=== PATIENT | female | born 1970 | race Caucasian/White ===

== ENCOUNTER → 2016-07-17 | Outpatient (CLI) | payer OTHER ==
[2016-07-17 19:21] LABS: MEAN CORPUSCULAR HEMOGLOBIN 30.5 pg (27.0-33.0); MEAN CORPUSCULAR HGB CONC 33.8 g/dl (32.0-36.5); MEAN CORPUSCULAR VOLUME 90.1 fl (80.0-96.0); RED CELL DISTRIBUTION WIDTH 12.3 % (11.5-14.5); WHITE BLOOD COUNT 6.9 K/mm3 (4.0-10.0)
[2016-07-17 19:41] LABS: LUTEINIZING HORMONE 26.1 mIU/mL; PROGESTERONE 1.4 NG/ML
[2016-07-17 19:42] LABS: ESTRADIOL 117.5 PG/ML; FOLLICLE STIMULATING HORMONE 18.6 mIU/mL
[2016-07-17 19:43] LABS: ALBUMIN 3.7 GM/DL (3.2-5.2); ALBUMIN/GLOBULIN RATIO 1.06 (1.00-1.93); ALKALINE PHOSPHATASE 64 U/L (45-117); ALT/SGPT 19 U/L (12-78); ANION GAP 9 MEQ/L (8-16); AST/SGOT 14 U/L (15-37); BILIRUBIN,DIRECT 0.1 MG/DL (0.0-0.2); BILIRUBIN,TOTAL 0.4 MG/DL (0.2-1.0); BLOOD UREA NITROGEN 9 MG/DL (7-18); CALCIUM LEVEL 8.4 MG/DL (8.5-10.1); CARBON DIOXIDE LEVEL 29 MEQ/L (21-32); CHLORIDE LEVEL 101 MEQ/L (98-107); CREATININE FOR GFR 0.79 MG/DL (0.55-1.02); GLOMERULAR FILTRATION RATE > 60.0 (>58); GLUCOSE, FASTING 107 MG/DL (70-105); SODIUM LEVEL 139 MEQ/L (136-145); TOTAL PROTEIN 7.2 GM/DL (6.4-8.2)
[2016-07-20 14:15] LABS: ESTRIOL SERUM <0.1 ng/mL (.); ESTRONE SERUM 137 pg/mL (.); SEX HORMONE BINDING GLOBULIN 83.3 nmol/L (24.6-122.0)
== END ==
LOC: M WUC 14:04
PROVIDERS: ATTEND Dermatology
DX: Z79.899 Other long term (current) drug therapy (principal); N94.819 Vulvodynia, unspecified

== ENCOUNTER → 2016-08-08 | Outpatient (CLI) | payer OTHER ==
[2016-08-08 14:42] LABS: LUTEINIZING HORMONE 17.7 mIU/mL
== END ==
LOC: M WUC 10:37
PROVIDERS: ATTEND Obstetrics & Gynecology
DX: N91.5 Oligomenorrhea, unspecified (principal)

== ENCOUNTER → 2016-08-28 | Outpatient (REF) | payer BC ==
[2016-08-28 15:00] LABS: BASO % 0.4 % (0.0-1.0); EOS # 0.1 K/mm3 (0.0-0.50); LYMPH # 1.2 K/mm3 (1.5-4.5); LYMPH % 22.3 % (24.0-44.0); MEAN CORPUSCULAR HEMOGLOBIN 30.2 pg (27.0-33.0); MEAN CORPUSCULAR HGB CONC 33.5 g/dl (32.0-36.5); MEAN CORPUSCULAR VOLUME 90.4 fl (80.0-96.0); MONO # 0.4 K/mm3 (0.0-0.8); MONO % 6.8 % (0.0-5.0); NEUTROPHILS # 3.7 K/mm3 (1.8-7.7); NEUTROPHILS % 66.6 % (36.0-66.0); RED CELL DISTRIBUTION WIDTH 12.5 % (11.5-14.5); WHITE BLOOD COUNT 5.5 K/mm3 (4.0-10.0)
[2016-08-28 15:45] LABS: ALBUMIN 3.5 GM/DL (3.2-5.2); ALBUMIN/GLOBULIN RATIO 1.09 (1.00-1.93); ALKALINE PHOSPHATASE 47 U/L (45-117); ALT/SGPT 15 U/L (12-78); ANION GAP 7 MEQ/L (8-16); AST/SGOT 11 U/L (15-37); BILIRUBIN,TOTAL 0.5 MG/DL (0.2-1.0); BLOOD UREA NITROGEN 11 MG/DL (7-18); CALCIUM LEVEL 8.5 MG/DL (8.5-10.1); CARBON DIOXIDE LEVEL 28 MEQ/L (21-32); CHLORIDE LEVEL 106 MEQ/L (98-107); CREATININE FOR GFR 0.76 MG/DL (0.55-1.02); GLOMERULAR FILTRATION RATE > 60.0 (>58); GLUCOSE, FASTING 76 MG/DL (70-105); POTASSIUM SERUM 4.5 MEQ/L (3.5-5.1); SODIUM LEVEL 141 MEQ/L (136-145); TOTAL PROTEIN 6.7 GM/DL (6.4-8.2)
[2016-08-28 21:59] LABS: CHOLESTEROL LEVEL 164 MG/DL (<200); TRIGLYCERIDES LEVEL 85 MG/DL (<150)
== END ==
LOC: M LABWUC 14:01
PROVIDERS: ATTEND Family Medicine
DX: Z13.220 Encounter for screening for lipoid disorders (principal); Z13.29 Encounter for screening for other suspected endocrine disorder

== ENCOUNTER → 2018-05-14 | Outpatient (CLI) | payer OTHER ==
[~2018-05-14] MED LIST: E-Z-GAS II EFFERVESCENT PACKET (SODIUM BICARB./CITRIC ACID/SIMETHICONE) As Ordered ONE; E-Z-HD 98% w/w 340GM SUSP BTL As Ordered ONE; E-Z-PAQUE 96% w/w SUSP 176GM BTL As Ordered ONE; PARO1TAB33; PROBCAP4 PO; PYRI100T2; YUVA10TA3
--- NOTE | 2018-05-15 08:12 | REP ---
UPPER GI AIR CONTRAST AND SMALL BOWEL FOLLOW THROUGH The procedure was performed under the direct supervision of Dr. Mcghee. The images were reviewed with Dr. Mcghee The infantryman film shows no organomegaly or pathological masses. The intestinal gas pattern is non-specific. Liquid barium and gas producing crystals were given in the erect position as well as liquid barium in the prone oblique position in order to perform a double contrast upper GI examination. Additionally liquid barium was given at the end of the examination in order to perform a small bowel follow through. The oral and pharyngeal stages of deglutition are unremarkable. Esophageal transport is prompt and efficient and there is no esophagitis, stricture, mucosal ring or hiatal hernia. There is mild gastroesophageal reflux demonstrated to below the level of the nancy. The stomach davidson are normally outlined . The rugal folds are smooth and regular. There is no gastritis neoplasm or ulcer disease. The duodenal davidson are normally outlined . The mucosal folds are smooth and regular. There is no duodenitis pancreatitis peptic ulcer disease or neoplasm. The visualized portion of the proximal small bowel appears normal in course and caliber. The barium column was followed through the small bowel to the level of the terminal ileum. Small bowel transit time right rapid as there is contrast seen in the colon at the end of the upper GI examination. During fluoroscopy gentle palpation shows all loops are freely movable and pliable. There are no fixed or angulated loops. The small bowel mucosal pattern is normal in course and caliber. There is no transition to suggest a partial small-bowel obstruction. Spot filming of the terminal ileum shows it to be unremarkable. Impression: There is mild gastroesophageal reflux demonstrated to below the level of the nancy. Small bowel transit time is quite rapid as there is contrast seen in the colon at the end of the upper GI examination. Otherwise, unremarkable double contrast upper GI and small bowel follow through examination. 2.6 minutes of fluoro time was utilized for this procedure. Reviewed by DON Woodard 05/14/2018 04:10 P Electronically Signed by Carlitos Mcghee MD 05/15/2018 08:04 A
== END ==
LOC: M RAD 07:53
PROVIDERS: ATTEND Surgery
DX: R10.9 Unspecified abdominal pain (principal)

== ENCOUNTER 2018-05-22 10:53 | Day surgery (SDC) | payer BC, OTHER ==
[~2018-05-22] VITALS: Ht 162.6 cm; Wt 65.8 kg
[~2018-05-22 10:53] MED LIST changes: -E-Z-GAS II EFFERVESCENT PACKET (SODIUM BICARB./CITRIC ACID/SIMETHICONE) As Ordered ONE; -E-Z-HD 98% w/w 340GM SUSP BTL As Ordered ONE; -E-Z-PAQUE 96% w/w SUSP 176GM BTL As Ordered ONE
[2018-05-22] MEDS ORDERED: PROPOFOL 500 MG/50 ML VIAL As Ordered ONE (11:50)
[2018-05-22] MEDS ORDERED: NS 1,000 ML IV ONE (12:00)
[2018-05-22] MEDS ORDERED: fentaNYL 100 MCG/2 ML INJECTION (J3010) As Ordered ONE (12:16)
--- NOTE | 2018-05-22 12:53 | ROOR ---
Patient Name: Amy Bowles Procedure Date: 05/22/2018 12:37 PM Date of : 1970 Age: 47 Room: [facility] Gender: Female Note Status: Finalized Procedure: Upper GI endoscopy Indications: Suspected esophageal reflux Providers: Be Armstrong Jr, MD Referring MD: Ed Dent Do Requesting Provider: Medicines: Propofol per Anesthesia Complications: No immediate complications. Procedure: Pre-Anesthesia Assessment: - Prior to the procedure, a History and Physical was performed, and patient medications and allergies were reviewed. The patient is competent. The risks and benefits of the procedure and the sedation options and risks were discussed with the patient. All questions were answered and informed consent was obtained. Patient identification and proposed procedure were verified by the physician and the nurse in the pre-procedure area and in the procedure room. Mental Status Examination: alert and oriented. Airway Examination: normal oropharyngeal airway and neck mobility. Respiratory Examination: clear to auscultation. CV Examination: normal. ASA Grade Assessment: II - A patient with mild systemic disease. After reviewing the risks and benefits, the patient was deemed in satisfactory condition to undergo the procedure. The anesthesia plan was to use moderate sedation / analgesia (conscious sedation). Immediately prior to administration of medications, the patient was re-assessed for adequacy to receive sedatives. The heart rate, respiratory rate, oxygen saturations, blood pressure, adequacy of pulmonary ventilation, and response to care were monitored throughout the procedure. The physical status of the patient was re-assessed after the procedure. The Endoscope was introduced through the mouth, and advanced to the second part of duodenum. The upper GI endoscopy was accomplished without difficulty. The patient tolerated the procedure well. Findings: The upper third of the esophagus, middle third of the esophagus, lower third of the esophagus and gastroesophageal junction were normal. The cardia, gastric fundus, gastric body, gastric antrum, prepyloric region of the stomach and pylorus were normal. The duodenal bulb, first portion of the duodenum and second portion of the duodenum were normal. Impression: - Normal upper third of esophagus, middle third of esophagus, lower third of esophagus and gastroesophageal junction. - Normal cardia, gastric fundus, gastric body, antrum, prepyloric region of the stomach and pylorus. - Normal duodenal bulb, first portion of the duodenum and second portion of the duodenum. - No specimens collected. Recommendation: - Discharge patient to home (ambulatory). Be Armstrong MD Be Armstrong Jr, MD 05/22/2018 12:53:24 PM This report has been signed electronically. Number of Addenda: 0 Note Initiated On: 05/22/2018 12:37 PM Estimated Blood Loss: Estimated blood loss: none.
--- NOTE | 2018-05-22 13:09 | ROOR ---
Patient Name: Amy Bowles Procedure Date: 05/22/2018 12:39 PM Date of : 1970 Age: 47 Room: [facility] Gender: Female Note Status: Finalized Procedure: Colonoscopy Indications: Generalized abdominal pain, Constipation Providers: Be Armstrong Jr, MD Referring MD: Ed Dent Do Requesting Provider: Medicines: Propofol per Anesthesia Complications: No immediate complications. Procedure: Pre-Anesthesia Assessment: - Prior to the procedure, a History and Physical was performed, and patient medications and allergies were reviewed. The patient is competent. The risks and benefits of the procedure and the sedation options and risks were discussed with the patient. All questions were answered and informed consent was obtained. Patient identification and proposed procedure were verified by the physician and the nurse in the pre-procedure area and in the procedure room. Mental Status Examination: alert and oriented. Airway Examination: normal oropharyngeal airway and neck mobility. Respiratory Examination: clear to auscultation. CV Examination: normal. ASA Grade Assessment: II - A patient with mild systemic disease. After reviewing the risks and benefits, the patient was deemed in satisfactory condition to undergo the procedure. The anesthesia plan was to use moderate sedation / analgesia (conscious sedation). Immediately prior to administration of medications, the patient was re-assessed for adequacy to receive sedatives. The heart rate, respiratory rate, oxygen saturations, blood pressure, adequacy of pulmonary ventilation, and response to care were monitored throughout the procedure. The physical status of the patient was re-assessed after the procedure. The Colonoscope was introduced through the anus and advanced to the cecum, identified by appendiceal orifice and ileocecal valve. The colonoscopy was performed without difficulty. The patient tolerated the procedure well. The quality of the bowel preparation was adequate. Findings: The rectum, recto-sigmoid colon, sigmoid colon, descending colon, transverse colon, ascending colon, cecum, appendiceal orifice and ileocecal valve appeared normal. The sigmoid colon, descending colon, transverse colon and ascending colon were moderately redundant. Impression: - The rectum, recto-sigmoid colon, sigmoid colon, descending colon, transverse colon, ascending colon, cecum, appendiceal orifice and ileocecal valve are normal. - Redundant colon. - No specimens collected. Recommendation: - Discharge patient to home (ambulatory). - Repeat colonoscopy in 10 years for screening purposes. Be Armstrong MD Be Armstrong Jr, MD 05/22/2018 1:08:38 PM This report has been signed electronically. Number of Addenda: 0 Note Initiated On: 05/22/2018 12:39 PM Estimated Blood Loss: Estimated blood loss: none.
[2018-05-22 13:43] VITALS: BP 109/69
== END 2018-05-22 13:46 | disposition home or self-care (01) ==
LOC: M OPP 10:53
PROVIDERS: ATTEND Surgery
DX: Q43.8 Other specified congenital malformations of intestine (principal); R10.84 Generalized abdominal pain; K59.00 Constipation, unspecified; K21.9 Gastro-esophageal reflux disease without esophagitis; Z79.899 Other long term (current) drug therapy
CPT/HCPCS: 43235; 45378; J3010

== ENCOUNTER → 2019-01-07 | Outpatient (REF) | payer BC | LOC: M SFHCPLAZ 10:47 | PROVIDERS: ATTEND Dermatology | DX: D49.2 Neoplasm of unspecified behavior of bone, soft tissue, and skin (principal) ==

== ENCOUNTER → 2019-04-17 | Outpatient (CLI) | payer BC ==
[~2019-04-17] MED LIST changes: -PYRI100T2; +VITA100T82
--- NOTE | 2019-04-20 09:38 | REP ---
FOCUSED BILATERAL BREAST SONOGRAPHY: Outside reading interpretation. Exam done March 26, 2019 [facility]. HISTORY: Second opinion requested regarding sonograph findings in the right breast. FINDINGS: The image is labeled as 7-o'clock position right breast by sonography demonstrates a hypoechoic nodule with its long axis parallel to the skin measuring 6 x 3 x 7 mm. This has multiple low level internal echoes. It has a well-defined back wall and some enhanced through transmission. It is not a simple cyst. It is compatible with fibroadenoma or conceivably, clustered microcysts. There is no mammographic correlate. This patient has extremely dense breast parenchyma mammographically. IMPRESSION: Images labeled at 7-o'clock position demonstrate a 6 x 3 x 7 mm hypoechoic nodule consistent with fibroadenoma. BIRADS category 3 probably benign lesion. Electronically Signed by Carlitos Mcghee MD 04/20/2019 11:44 A
== END ==
LOC: M RAD 13:15 → EDSTATUS 14:31 → M RAD 14:33
PROVIDERS: ATTEND Surgery
DX: D49.3 Neoplasm of unspecified behavior of breast (principal); N63.10 Unspecified lump in the right breast, unspecified quadrant

== ENCOUNTER → 2019-04-29 | Outpatient (CLI) | payer BC ==
[~2019-04-29] MED LIST changes: +TIZA4TAB4 PO
[2019-04-29 14:41] VITALS: BP 112/56
--- NOTE | 2019-04-29 16:46 | REP ---
Focused right breast sonography: History: Right breast mass. For evaluation before ultrasound guided biopsy. Comparison sonography June 11, 2017. Sonographic findings: At 9 o'clock in the right breast 2 cm from the nipple there is a complex 5 x 4 x 5 mm hypoechoic area with internal echoes and enhanced through transmission. At 7 o'clock position, 1 cm from the nipple there is a 10 x 3 x 3 mm cyst. Impression: The 9 o'clock hypoechoic area 5 mm in diameter does not meet criteria of a simple cyst. I am informed this lesion was biopsied following this exam by Dr. San. Electronically Signed by Carlitos Mcghee MD 04/29/2019 05:02 P
--- NOTE | 2019-04-29 16:53 | REP ---
Focused right breast sonography: History: Ultrasound guidance. Ultrasound-guided needle biopsy procedure. Sonographic guidance is provided to Dr. San who performed ultrasound-guided breast biopsy procedure. Electronically Signed by Carlitos Mcghee MD 04/29/2019 05:02 P
--- NOTE | 2019-04-29 16:54 | REP ---
Digital diagnostic unilateral right breast mammography: Two views: History: Marker clip placement views post biopsy. Comparison mammography, [facility] March 26, 2019. Findings: Craniocaudal and mediolateral views of the right breast demonstrate a marker clip positioned posterolaterally in the right breast at approximately the 10 o'clock position in the upper outer quadrant. Breast parenchyma is heterogeneously dense unchanged. Impression: Marker clip seen in the upper outer quadrant posteriorly. Electronically Signed by Carlitos Mcghee MD 04/29/2019 05:02 P
--- NOTE | 2019-04-29 17:45 | ROOPDOC ---
[facility] Report Of Operation Report of Operation DATE OF PROCEDURE: 04/29/19 PREPROCEDURE DIAGNOSES: Right breast mass POSTPROCEDURE DIAGNOSES: Right breast mass PROCEDURE: Ultrasound guided Biopsy of right breast mass with clip placement SURGEON: Shahana Soto ORCHARD WORKER: ANESTHESIA: local 6 cc ESTIMATED BLOOD LOSS: Approximately 1 mL. COMPLICATIONS: none REMARKS: Clip seen on the right breast mammogram in expected location DESCRIPTION OF PROCEDURE: Lidocaine 1% LOT [id number] Expiration July 2022 Sodium Bicarbonate 8.4% LOT [id number] Expiration November 2020 Hydromark clip LOT [id number] Expiration December 2021 REF [id number] titanium shaped 3(open Spring) Bx device: BARD [id number] x10 cm LOT HUD [id number] Expiration December 2021 REF [id number] Informed consent was obtained in the preop area. The most common risk and possible complications including bleeding, hematoma, bruising, infection, injury to surrounding structures were explained to the patient and she expressed understanding. Patient was taken to the procedure room and placed on the bed in the supine position with the right upper extremity placed above the head. Appropriate time out was done stating patients name, date of , and the procedure to be performed. The right breast was prepped and draped in the usual fashion. The ultrasound was used to confirm the location of the lesion in the right breast at 9:00. Plain Lidocaine 1% and 8.4% sodium bicarbonate 10:1 mix was used to numb the skin, the biopsy site and tissues along the anticipated biopsy tract. Small skin incision was made with blade number 11. BARD Marquee 14G cannula with introducer ([id number]) was inserted through the incision and advanced under the ultrasound guidance to position immediately adjacent to the lesion. Next, the introducer was removed and BARD Marquee 14G biopsy device was places in the cannula. Pre-biopsy imaging, and post-biopsy imaging were captured. Three good core biopsies were taken at various levels of the lesion. No additional biopsies were taken as the lesion was small and after three biopsies it was not visible anymore on ultrasound. Next, the biopsy device was withdrawn and a clip introducer was inserted into the biopsy site via the cannula. The Hydromark clip was deployed under direct vision. Post-clip placement image was captured. Manual pressure over the biopsy cavity and tract was held after the clip introducer was withdrawn. No bleeding was noted upon removal of the pressure. Post-biopsy mammogram of the right breast was obtained and showed clip in expected position. Postprocedural dressing was placed. Patient tolerated procedure well and was taken to the recovery unit in stable condition. Discharge instructions were discussed with the patient and she expressed understanding. SHAHANA SOTO DO Apr 29, 2019 17:45
== END ==
LOC: M WHCPRO 13:05
PROVIDERS: ATTEND Surgery
DX: D24.1 Benign neoplasm of right breast (principal)

== ENCOUNTER → 2019-11-26 | Outpatient (REF) | payer BC ==
[2019-11-26 16:21] LABS: ALBUMIN 3.8 GM/DL (3.2-5.2); ALT/SGPT 22 U/L (12-78); BILIRUBIN,TOTAL 0.4 MG/DL (0.2-1.0); BLOOD UREA NITROGEN 14 MG/DL (7-18); CALCIUM LEVEL 9.1 MG/DL (8.5-10.1); CARBON DIOXIDE LEVEL 31 MEQ/L (21-32); CHLORIDE LEVEL 104 MEQ/L (98-107); CREATININE FOR GFR 0.85 MG/DL (0.55-1.30); GLOMERULAR FILTRATION RATE > 60.0 (>51); GLUCOSE, FASTING 77 MG/DL (70-100); POTASSIUM SERUM 4.2 MEQ/L (3.5-5.1); SODIUM LEVEL 140 MEQ/L (136-145); TOTAL PROTEIN 7.6 GM/DL (6.4-8.2)
== END ==
LOC: M PLALAB 11:00
PROVIDERS: ATTEND Internal Medicine
DX: M13.0 Polyarthritis, unspecified (principal); R94.5 Abnormal results of liver function studies

== ENCOUNTER → 2020-02-04 | Outpatient (CLI) | payer BC ==
--- NOTE | 2020-02-04 12:32 | REP ---
INDICATION: N63.10 F/U RT BENIGN BREAST MASS. COMPARISON: 04/29/2019. TECHNIQUE: Real-time sonographic evaluation of bilateral breasts performed. FINDINGS: There are multiple tiny bilateral cysts all subcentimeter in diameter. Biopsy clip is noted at the 9 o'clock position of the right breast status post prior benign biopsy at that location 04/29/2019. Morphologically normal appearing lymph nodes are seen in the right axilla with the largest 1.1 x 1.1 x 0.6 cm. A cyst with a thin septation left breast 7 o'clock measures 5 x 6 x 2 mm appears benign. A morphologically normal appearing lymph node in the left axilla measures 2.3 x 1.5 x 0.7 cm. IMPRESSION: BIRADS/ACR category 2 benign findings as discussed in detail above. RECOMMENDATION: Routine follow-up. <Electronically signed by Vishal Salmon > 02/04/20 [id number]
== END ==
LOC: M WHC 10:57
PROVIDERS: ATTEND Surgery
DX: N60.11 Diffuse cystic mastopathy of right breast (principal); N60.12 Diffuse cystic mastopathy of left breast; Z97.8 Presence of other specified devices; R92.2 Inconclusive mammogram

== ENCOUNTER → 2020-03-31 | Outpatient (CLI) | payer BC ==
--- NOTE | 2020-03-31 11:19 | REPMRS ---
Patient History The patient states she had a clinical breast exam in 12/2019. Family history of breast cancer in paternal cousin. Benign US guided breast biopsy. of the right breast, April 29, 2019. No Hormone Replacement Therapy 3D TOMOSYNTHESIS WAS PERFORMED. The [place] lifetime risk for breast cancer is 9.1%. Volpara breast density d. Digital Woman Screen Mammo: March 31, 2020 - Exam #: [id number] Bilateral CC and MLO view(s) were taken. Technologist: Massiel Fowler, Technologist Prior study comparison: April 29, 2019, right breast diagnostic unilateral mammo performed at [facility]. FINDINGS: The breast tissue is extremely dense which could obscure a lesion on mammography. There has been no change in the appearance of the mammogram from the prior studies. There is a moderate amount of residual fibroglandular tissue which is fairly symmetric. There is no interval development of dominant mass, areas of architectural distortion, or clustered microcalcification typical of malignancy. Assessment: BI-RADS/ACR category 1 mammogram. Negative Mammogram. Recommendation Routine screening mammogram in 1 year (for women over age 40). This mammogram was interpreted with the aid of an FDA-approved computer-aided dectection system. Electronically Signed By: Vishal Salmon MD 03/31/20 [id number]
--- NOTE | 2020-03-31 11:27 | REP ---
INDICATION: N63.10 RIGHT BREAST MASS/R92.2 DENSE BREAST. COMPARISON: 04/29/2019. TECHNIQUE: Real-time sonographic evaluation of right breast performed. FINDINGS: Biopsy clip is seen in the lateral right breast at the site of the prior ultrasound-guided biopsy. No cystic or solid nodule is seen in the region. IMPRESSION: BIRADS/ACR category 2 benign. Biopsy clip laterally in the right breast at the site of the prior biopsy with no current evidence of cystic or solid nodule. RECOMMENDATION: Clinical follow-up. <Electronically signed by Vishal Salmon > 03/31/20 [id number]
== END ==
LOC: M WHC 10:21
PROVIDERS: ATTEND Surgery
DX: R92.2 Inconclusive mammogram (principal); N63.10 Unspecified lump in the right breast, unspecified quadrant

== ENCOUNTER 2022-02-05 12:11 | Observation (INO) | payer BC ==
[~2022-02-05] VITALS: Ht 162.6 cm; Wt 70.1 kg
[~2022-02-05 12:11] MED LIST changes: -PARO1TAB33; +PARO1TAB33 PO; +TIZA10TA PO; -TIZA4TAB4 PO
[2022-02-05] MEDS ORDERED: ISOVUE-370 76% 100ML VIAL As Ordered ONE (13:11)
[2022-02-05 13:34] VITALS: BP 141/89
[2022-02-05 13:38] LABS: BASO % 0.3 % (0.0-1.0); EOS # 0.1 10^3/uL (0.0-0.5); EOS % 1.8 % (0.0-3.0); HEMATOCRIT 38.8 % (36.0-47.0); HEMOGLOBIN 12.8 g/dl (12.0-15.5); LYMPH # 1.5 10^3/uL (1.5-5.0); LYMPH % 25.5 % (24.0-44.0); MEAN CORPUSCULAR HEMOGLOBIN 28.2 pg (27.0-33.0); MEAN CORPUSCULAR VOLUME 85.5 fl (80.0-96.0); MONO # 0.6 10^3/uL (0.0-0.8); MONO % 10.1 % (2.0-8.0); NEUTROPHILS # 3.7 10^3/uL (1.5-8.5); NEUTROPHILS % 61.8 % (36.0-66.0); PLATELET COUNT, AUTOMATED 216 10^3/uL (150-450); RED BLOOD COUNT 4.54 10^6/uL (4.00-5.40)
[2022-02-05 13:53] LABS: INR 0.97; PROTHROMBIN TIME 13.1 SECONDS (12.5-14.5)
[2022-02-05 13:54] LABS: PARTIAL THROMBOPLASTIN TIME 32.9 SECONDS (24.8-34.2)
[2022-02-05 15:11] LABS: RSV AMPLIFICATION NEGATIVE (NEGATIVE)
[2022-02-05 15:39] LABS: BLOOD UREA NITROGEN 13 MG/DL (9-23); CALCIUM LEVEL 8.8 MG/DL (8.5-10.1); CARBON DIOXIDE LEVEL 29 MMOL/L (20-31); CHLORIDE LEVEL 102 MMOL/L (98-107); CK-MB VALUE MASS < 1.0 NG/ML (<3.6); CPK CREATINE PHOSPHOKINASE 55 U/L (34-145); CREATININE FOR GFR 0.71 MG/DL (0.55-1.30); GLOMERULAR FILTRATION RATE > 60.0 (>51); GLUCOSE, FASTING 94 MG/DL (60-100); MAGNESIUM LEVEL 1.8 MG/DL (1.8-2.4); MB/CK RELATIVE INDEX 1.81 (< OR =4); POTASSIUM SERUM 3.7 MMOL/L (3.5-5.1); SODIUM LEVEL 139 MMOL/L (136-145); VITAMIN B12 LEVEL 742 PG/ML (211-911)
[2022-02-05 15:57] LABS: FOLATE 18.16 NG/ML (>5.4)
[2022-02-05 16:31] LABS: FREE T4 0.93 NG/DL (0.89-1.76); THYROID STIMULATING HORMONE 2.432 uIU/ML (0.55-4.78)
[2022-02-05] MEDS ORDERED: D ME PO (17:02)
[2022-02-05] MEDS ORDERED: CETI-24 PO (17:02)
[2022-02-05] MEDS ORDERED: VITA100093 PO (17:02)
[2022-02-05] MEDS ORDERED: ESTR10TA PV (17:02)
[2022-02-05] MEDS ORDERED: HOME MED LIST COMPLETE! XX SCH (17:05)
[2022-02-05] MEDS ORDERED: ASPIRIN 81 MG CHEW TABLET PO SCH (17:20)
[2022-02-05 18:21] LABS: CHOLESTEROL RISK RATIO 2.34 (<5); HDL CHOLESTEROL 70.4 MG/DL (>40); LDL CHOLESTEROL 76.8 MG/DL (<100)
[2022-02-05] MEDS ORDERED: PARoxetine 20MG TABLET PO SCH (21:00)
[2022-02-05] MEDS ORDERED: CETIRIZINE (ZyrTEC) 10 MG TAB PO SCH (21:00)
[2022-02-05 21:25] LABS: HEMOGLOBIN A1c 4.8 % (4.0-6.0)
[2022-02-06] MEDS ORDERED: ASPI81CH8 PO (07:42)
[2022-02-06] MEDS ORDERED: VITAMIN D 1,000 INTERNATIONAL UNITS TABLET PO SCH (09:00)
[2022-02-06] MEDS ORDERED: ENOXAPARIN 40MG/0.4ML SYRINGE (J1650 PER 10MG) SC SCH (09:00)
[2022-02-06 10:00] VITALS: BP 143/79
[2022-02-06] MEDS ORDERED: ASPI81CH48 PO (11:03)
[2022-02-06] MEDS ORDERED: ATOR40TA75 PO (11:03)
== END 2022-02-06 11:15 | disposition home or self-care (01) ==
LOC: M ED 12:11 → M ED INP 17:13
PROVIDERS: ADMIT Internal Medicine; ATTEND Internal Medicine
DX: R20.2 Paresthesia of skin (principal); R20.0 Anesthesia of skin; R53.1 Weakness; R26.81 Unsteadiness on feet; R29.700 NIHSS score 0; J06.9 Acute upper respiratory infection, unspecified; M48.02 Spinal stenosis, cervical region; F41.9 Anxiety disorder, unspecified; E55.9 Vitamin D deficiency, unspecified; M54.50 Low back pain, unspecified; M51.36 Other intervertebral disc degeneration, lumbar region; Z79.899 Other long term (current) drug therapy; Z79.890 Hormone replacement therapy; Z82.3 Family history of stroke

== ENCOUNTER → 2022-02-14 | Outpatient (CLI) | payer BC ==
[~2022-02-14] MED LIST changes: +ASPI81CH48 PO; +ASPI81CH8 PO; +ATOR40TA75 PO; +CETI-24 PO; +D ME PO; +ESTR10TA PV; +VITA100093 PO
== END ==
LOC: M RAD 11:00
PROVIDERS: ATTEND Physician Assistant
DX: E04.1 Nontoxic single thyroid nodule (principal)

== ENCOUNTER → 2022-03-20 | Outpatient (REF) | payer BC | LOC: M LAB REF 17:33 | PROVIDERS: ATTEND Internal Medicine Endocrinology, Diabetes & Metabolism | DX: E04.1 Nontoxic single thyroid nodule (principal) ==

== ENCOUNTER → 2022-05-29 | Outpatient (REF) | payer BC | LOC: M LAB REF 16:44 | PROVIDERS: ATTEND Internal Medicine Endocrinology, Diabetes & Metabolism | DX: E04.2 Nontoxic multinodular goiter (principal) ==

== ENCOUNTER → 2022-06-28 | Outpatient (CLI) | payer BC | LOC: M WHC 13:05 | PROVIDERS: ATTEND Obstetrics & Gynecology | DX: Z13.820 Encounter for screening for osteoporosis (principal) ==

== ENCOUNTER → 2022-08-31 | Outpatient (CLI) | payer BC | LOC: M PLALAB 12:57 | PROVIDERS: ATTEND Student in an Organized Health Care Education/Training Program | DX: C73 Malignant neoplasm of thyroid gland (principal) ==

== ENCOUNTER → 2022-10-18 | Outpatient (CLI) | payer BC ==
[2022-10-18 16:33] LABS: FREE T4 1.79 NG/DL (0.89-1.76); THYROID STIMULATING HORMONE 0.008 uIU/ML (0.55-4.78)
== END ==
LOC: M PLALAB 13:35
PROVIDERS: ATTEND Internal Medicine Endocrinology, Diabetes & Metabolism
DX: E89.0 Postprocedural hypothyroidism (principal)

== ENCOUNTER → 2022-11-05 | Outpatient (CLI) | payer BC | LOC: M LAB 15:43 | PROVIDERS: ATTEND Surgery | DX: R10.13 Epigastric pain (principal) ==

== ENCOUNTER → 2023-01-07 | Outpatient (CLI) | payer OTHER ==
[2023-01-07 23:05] LABS: FREE T4 1.5 NG/DL (0.89-1.76); THYROID STIMULATING HORMONE 0.013 uIU/ML (0.55-4.78)
== END ==
LOC: M PLALAB 12:53
PROVIDERS: ATTEND Internal Medicine Endocrinology, Diabetes & Metabolism
DX: C73 Malignant neoplasm of thyroid gland (principal)

== ENCOUNTER → 2023-01-09 | Outpatient (CLI) | payer OTHER ==
[2023-01-09 15:43] LABS: HEMATOCRIT 38.2 % (36.0-47.0); HEMOGLOBIN 12.7 g/dl (12.0-15.5)
[2023-01-09 16:17] LABS: PROGESTERONE < 0.21 NG/ML
[2023-01-09 16:18] LABS: FREE T4 1.62 NG/DL (0.89-1.76); LUTEINIZING HORMONE 49.7 mIU/ML; THYROID STIMULATING HORMONE 0.012 uIU/ML (0.55-4.78)
[2023-01-09 16:19] LABS: ESTRADIOL < 19.0 PG/ML; TESTOSTERONE 17 NG/DL (14-76)
== END ==
LOC: M LAB 13:29 → M PLALAB 13:29
DX: Z79.890 Hormone replacement therapy (principal)

== ENCOUNTER 2023-03-07 08:10 | Day surgery (SDC) | payer OTHER ==
[~2023-03-07] VITALS: Ht 162.6 cm; Wt 67.0 kg
[~2023-03-07 08:10] MED LIST changes: +LEVO125T4 PO; +NS 1,000 ML IV ONE
[2023-03-07] MEDS ORDERED: fentaNYL 100 MCG/2 ML INJECTION As Ordered ONE (08:37)
[2023-03-07] MEDS ORDERED: propofoL 200 MG/20 ML VIAL As Ordered ONE (08:57)
[2023-03-07] MEDS ORDERED: ePHEDrine SULFATE 25 MG/5 ML(5MG/ML) SYRINGE As Ordered ONE (09:03)
[2023-03-07 09:19] VITALS: TEMP 97.5
[2023-03-07] MEDS ORDERED: ONDANSETRON 4MG 2ML VIAL As Ordered ONE (09:23)
[2023-03-07 09:35] VITALS: BP 100/58; O2SAT 99
== END 2023-03-07 09:40 | disposition home or self-care (01) ==
LOC: M OPP 08:10
PROVIDERS: ATTEND Surgery
DX: K63.5 Polyp of colon (principal); R10.84 Generalized abdominal pain; K31.7 Polyp of stomach and duodenum; K31.89 Other diseases of stomach and duodenum; R14.0 Abdominal distension (gaseous); Z79.890 Hormone replacement therapy; Z79.899 Other long term (current) drug therapy
CPT/HCPCS: 43239; 45380; 88305; J2405; J3010

== ENCOUNTER → 2023-07-02 | Outpatient (REF) | payer OTHER ==
[~2023-07-02] MED LIST changes: -NS 1,000 ML IV ONE
== END ==
LOC: M SFHCDERM 17:03
PROVIDERS: ATTEND Nurse Practitioner Family
DX: L21.9 Seborrheic dermatitis, unspecified (principal)

== ENCOUNTER → 2023-07-08 | Outpatient (CLI) | payer OTHER ==
[2023-07-08 16:21] LABS: THYROID STIMULATING HORMONE 0.009 uIU/ML (0.55-4.78)
[2023-07-08 16:22] LABS: FREE T4 1.6 NG/DL (0.89-1.76)
== END ==
LOC: M PLALAB 12:30
PROVIDERS: ATTEND Internal Medicine Endocrinology, Diabetes & Metabolism
DX: C73 Malignant neoplasm of thyroid gland (principal)

== ENCOUNTER → 2023-08-07 | Outpatient (CLI) | payer OTHER | LOC: M RAD 12:12 | PROVIDERS: ATTEND Internal Medicine Endocrinology, Diabetes & Metabolism | DX: C73 Malignant neoplasm of thyroid gland (principal) ==

== ENCOUNTER → 2023-12-04 | Outpatient (CLI) | payer OTHER ==
[2023-12-04 16:01] LABS: FREE T4 1.73 NG/DL (0.89-1.76)
[2023-12-04 16:03] LABS: THYROID STIMULATING HORMONE 0.008 uIU/ML (0.55-4.78)
[2023-12-05 14:46] LABS: THRYOGLOBULIN ANTIBODIES (ATA) 1 IU/mL (< or = 1); THYROGLOBULIN QUANTITATIVE < 0.1 ng/mL (2.8-40.9)
== END ==
LOC: M PLALAB 11:47
PROVIDERS: ATTEND Internal Medicine Endocrinology, Diabetes & Metabolism
DX: C73 Malignant neoplasm of thyroid gland (principal)

== ENCOUNTER → 2024-05-22 | Outpatient (CLI) | payer OTHER ==
[2024-05-22 15:08] LABS: FREE T4 1.78 NG/DL (0.89-1.76)
[2024-05-22 15:09] LABS: THYROID STIMULATING HORMONE < 0.010 uIU/ML (0.55-4.78)
[2024-05-25 12:32] LABS: THRYOGLOBULIN ANTIBODIES (ATA) < 1 IU/mL (< or = 1); THYROGLOBULIN QUANTITATIVE < 0.1 ng/mL (2.8-40.9)
== END ==
LOC: M PLALAB 11:38
PROVIDERS: ATTEND Internal Medicine Endocrinology, Diabetes & Metabolism
DX: C73 Malignant neoplasm of thyroid gland (principal)

== ENCOUNTER → 2024-06-10 | Outpatient (CLI) | payer OTHER ==
[2024-06-10 10:11] LABS: AMORPHOUS SEDIMENT LARGE (NEGATIVE); APPEARANCE, URINE TURBID (CLEAR); BACTERIA, URINE AUTO NEGATIVE (NEGATIVE); BILIRUBIN, URINE AUTO NEGATIVE (NEGATIVE); BLOOD, URINE BLOOD 1+ (NEGATIVE); COLOR, URINE AMBER (YELLOW); GLUCOSE, URINE (UA) AUTO NEGATIVE (NEGATIVE); KETONE, URINE AUTO NEGATIVE (NEGATIVE); LEUKOCYTE ESTERASE, URINE AUTO 1+ (NEGATIVE); MUCUS, URINE LARGE (NEGATIVE); NITRITE, URINE AUTO NEGATIVE (NEGATIVE); PROTEIN, URINE AUTO NEGATIVE (NEGATIVE); RBC, URINE AUTO 1 /HPF (0-3); SPECIFIC GRAVITY URINE AUTO 1.025 (1.002-1.035); SQUAMOUS EPITHELIAL CELL UR AU 52 /HPF (0-6); UROBILINOGEN, URINE AUTO 0.2 mg/dL (0.0-2.0); WBC, URINE AUTO 8 /HPF (0-3)
[2024-06-10 10:14] LABS: BASO % 0.7 % (0.0-1.0); EOS # 0.1 10^3/uL (0.0-0.5); HEMATOCRIT 38.4 % (36.0-47.0); HEMOGLOBIN 12.8 g/dl (12.0-15.5); LYMPH # 2.1 10^3/uL (1.5-5.0); LYMPH % 34.7 % (24.0-44.0); MEAN CORPUSCULAR HEMOGLOBIN 28.2 pg (27.0-33.0); MEAN CORPUSCULAR HGB CONC 33.3 g/dl (32.0-36.5); MEAN CORPUSCULAR VOLUME 84.6 fl (80.0-96.0); MONO # 0.5 10^3/uL (0.0-0.8); MONO % 8.5 % (2.0-8.0); NEUTROPHILS # 3.2 10^3/uL (1.5-8.5); NEUTROPHILS % 53.8 % (36.0-66.0); PLATELET COUNT, AUTOMATED 241 10^3/uL (150-450); RED BLOOD COUNT 4.54 10^6/uL (4.00-5.40); WHITE BLOOD COUNT 5.9 10^3/uL (4.0-10.0)
[2024-06-10 10:32] LABS: ALBUMIN 3.6 G/DL (3.2-5.2); ALKALINE PHOSPHATASE 81 U/L (35-104); ALT/SGPT 13 U/L (7.0-40); AST/SGOT 13 U/L (<34); BILIRUBIN,TOTAL 0.5 MG/DL (0.3-1.2); BLOOD UREA NITROGEN 14 MG/DL (9-23); CALCIUM LEVEL 9.1 MG/DL (8.5-10.1); CARBON DIOXIDE LEVEL 28 MMOL/L (20-31); CHLORIDE LEVEL 103 MMOL/L (98-107); CHOLESTEROL LEVEL 167 MG/DL (<200); CHOLESTEROL RISK RATIO 2.48 (<5); CREATININE FOR GFR 0.68 MG/DL (0.55-1.30); GLOMERULAR FILTRATION RATE > 60.0 (>51); GLUCOSE, FASTING 86 MG/DL (60-100); HDL CHOLESTEROL 67.2 MG/DL (>40); IRON (FE) 95 UG/DL (50-170); LDL CHOLESTEROL 76.8 MG/DL (<100); NON-HDL-C 99.8 MG/DL; SODIUM LEVEL 140 MMOL/L (136-145); TRIGLYCERIDES LEVEL 115 MG/DL (<150)
[2024-06-10 10:34] LABS: TOTAL 25(OH) VITAMIN D 41.8 NG/ML (20.0-100.0)
[2024-06-10 10:35] LABS: FERRITIN 59.9 NG/ML (7.3-270.7); VITAMIN B12 LEVEL 385 PG/ML (211-911)
[2024-06-10 10:42] LABS: HEMOGLOBIN A1c 4.6 % (4.0-6.0)
== END ==
LOC: M PLALAB 07:44
PROVIDERS: ATTEND Physician Assistant
DX: Z00.00 Encounter for general adult medical examination without abnormal findings (principal)

== ENCOUNTER → 2024-06-15 | Outpatient (REF) | payer OTHER | LOC: M SFHCWAGY 12:30 | PROVIDERS: ATTEND Nurse Practitioner Family | DX: Z12.4 Encounter for screening for malignant neoplasm of cervix (principal); Z11.51 Encounter for screening for human papillomavirus (HPV); Z01.419 Encounter for gynecological examination (general) (routine) without abnormal findings ==

== ENCOUNTER → 2024-07-02 | Outpatient (CLI) | payer OTHER | LOC: M WHC 12:40 | PROVIDERS: ATTEND Internal Medicine Endocrinology, Diabetes & Metabolism | DX: C73 Malignant neoplasm of thyroid gland (principal) ==

== ENCOUNTER → 2024-08-07 | Outpatient (CLI) | payer OTHER ==
[2024-08-07 18:23] LABS: THYROID STIMULATING HORMONE < 0.010 uIU/ML (0.55-4.78)
[2024-08-07 18:25] LABS: FREE T4 1.56 NG/DL (0.89-1.76)
== END ==
LOC: M PLALAB 15:01
PROVIDERS: ATTEND Internal Medicine Endocrinology, Diabetes & Metabolism
DX: C73 Malignant neoplasm of thyroid gland (principal)

== ENCOUNTER 2025-01-21 11:42 | Emergency (ER) | payer OTHER ==
[~2025-01-21] VITALS: Ht 162.6 cm; Wt 70.2 kg
[2025-01-21 13:39] VITALS: TEMP 96.3
[2025-01-21] MEDS ORDERED: UBRO100T PO (14:00)
[2025-01-21 14:09] VITALS: BP 120/71; O2SAT 98
== END 2025-01-21 14:12 | disposition home or self-care (01) ==
LOC: M ED 11:42
DX: G43.909 Migraine, unspecified, not intractable, without status migrainosus (principal); C73 Malignant neoplasm of thyroid gland; Z79.899 Other long term (current) drug therapy

== ENCOUNTER → 2025-03-06 | Outpatient (REF) | payer OTHER ==
[~2025-03-06] MED LIST changes: +UBRO100T PO
[2025-03-06 13:22] LABS: APPEARANCE, URINE HAZY (CLEAR); BACTERIA, URINE AUTO NEGATIVE (NEGATIVE); BILIRUBIN, URINE AUTO NEGATIVE (NEGATIVE); BLOOD, URINE BLOOD NEGATIVE (NEGATIVE); GLUCOSE, URINE (UA) AUTO NEGATIVE (NEGATIVE); KETONE, URINE AUTO TRACE mg/dL (NEGATIVE); LEUKOCYTE ESTERASE, URINE AUTO 1+ (NEGATIVE); MUCUS, URINE MODERATE (NEGATIVE); NITRITE, URINE AUTO NEGATIVE (NEGATIVE); PROTEIN, URINE AUTO NEGATIVE (NEGATIVE); RBC, URINE AUTO 0 /HPF (0-3); SPECIFIC GRAVITY URINE AUTO 1.025 (1.002-1.035); SQUAMOUS EPITHELIAL CELL UR AU 18 /HPF (0-6); UROBILINOGEN, URINE AUTO 0.2 mg/dL (0.0-2.0); WBC, URINE AUTO 20 /HPF (0-3)
== END ==
LOC: M LAB REF 13:05
DX: N39.0 Urinary tract infection, site not specified (principal)